=== PATIENT | female | born 1940 | race Hispanic/Latino ===

== ENCOUNTER → 2023-05-02 | Outpatient (CLI) | payer OTHER, MEDICARE ==
[~2023-05-02] MED LIST: IOHEXOL-350 75 ML VIAL IV ONE
== END | disposition home or self-care (01) ==
LOC: RAH 10:27
PROVIDERS: ATTEND Internal Medicine Gastroenterology
DX: R63.4 Abnormal weight loss (principal); R62.7 Adult failure to thrive
CPT/HCPCS: 74178; 71046; Q9967

== ENCOUNTER → 2023-05-17 | Outpatient (CLI) | payer OTHER, MEDICARE | END | disposition home or self-care (01) | LOC: EDBD → RAH 10:00 | PROVIDERS: ATTEND Internal Medicine Gastroenterology | DX: K44.9 Diaphragmatic hernia without obstruction or gangrene (principal); R63.4 Abnormal weight loss; R62.7 Adult failure to thrive; R68.81 Early satiety; K21.9 Gastro-esophageal reflux disease without esophagitis | CPT/HCPCS: 74240 ==

== ENCOUNTER 2023-05-25 21:06 | Emergency (ER) | payer OTHER, MEDICARE ==
[~2023-05-25] VITALS: Ht 157.5 cm; Wt 69.9 kg
[2023-05-25] MEDS ORDERED: ACETAMINOPHEN 500 MG TABLET PO ONE (23:00)
[2023-05-26 00:25] VITALS: BP 158/98; PULSE 87; RESP 20; O2SAT 95
== END 2023-05-26 00:43 | disposition home or self-care (01) ==
LOC: EDH 21:06
DX: M79.10 Myalgia, unspecified site (principal); M54.2 Cervicalgia; M54.9 Dorsalgia, unspecified; I10 Essential (primary) hypertension; M19.90 Unspecified osteoarthritis, unspecified site; V89.2XXA Person injured in unspecified motor-vehicle accident, traffic, initial encounter; Y93.I9 Activity, other involving external motion; Y92.488 Other paved roadways as the place of occurrence of the external cause; Y99.8 Other external cause status
CPT/HCPCS: 72125; 72128

== ENCOUNTER → 2023-07-26 | Outpatient (CLI) | payer OTHER, MEDICARE ==
[2023-07-26 16:29] LABS: CREATININE 1.6 mg/dL (0.5-1.5); POTASSIUM 3.1 mmol/L (3.5-5.1)
== END | disposition home or self-care (01) ==
LOC: LAB 11:56
PROVIDERS: ATTEND Internal Medicine Cardiovascular Disease
DX: E03.9 Hypothyroidism, unspecified (principal)
CPT/HCPCS: 36415; 80048

== ENCOUNTER → 2023-07-27 | Outpatient (CLI) | payer OTHER, MEDICARE | END | disposition home or self-care (01) | LOC: RAH 07:14 | PROVIDERS: ATTEND Internal Medicine Gastroenterology | DX: K30 Functional dyspepsia (principal); R63.4 Abnormal weight loss; R11.0 Nausea; R68.81 Early satiety | CPT/HCPCS: 78264; A9541 ==

== ENCOUNTER 2023-07-31 21:32 | Emergency (ER) | payer OTHER, MEDICARE ==
[~2023-07-31] VITALS: Ht 152.4 cm; Wt 62.1 kg
[2023-07-31 22:42] LABS: BASOPHILS # (AUTO) 0.06 K/uL (0.00-0.20); EOSINOPHILS # (AUTO) 1.15 K/uL (0.00-0.70); EOSINOPHILS % (AUTO) 19.8 % (0.0-8.0); IMMATURE GRANULOCYTE ABSOLUTE 0.01 K/uL (0-1); LYMPHOCYTES # (AUTO) 1.2 K/uL (1.0-4.8); MEAN CORPUSCULAR HEMOGLOBIN 29.2 pg (27.0-33.0); MEAN CORPUSCULAR HGB CONC 32.4 g/dL (32.0-36.0); MONOCYTES # (AUTO) 0.5 K/uL (0.1-1.0); MONOCYTES % (AUTO) 9.3 % (3.0-13.0); NEUTROPHILS # (AUTO) 2.8 K/uL (1.8-7.7); NEUTROPHILS % (AUTO) 48.7 % (40.0-77.0); PLATELET COUNT (AUTO) 237 K/uL (130-400); RED CELL DISTRIBUTION WIDTH 15.6 % (11.0-15.5); WHITE BLOOD COUNT (AUTO) 5.8 K/uL (4.8-10.8)
[2023-07-31 22:58] LABS: APPEARANCE,URINE CLEAR (CLEAR); BILIRUBIN,URINE NEGATIVE (NEGATIVE); COLOR,URINE YELLOW (YELLOW); GLUCOSE, URINE (UA) NEGATIVE (NEGATIVE); KETONES,URINE 5 mg/dL (NEGATIVE); LEUKOCYTE ESTERASE ,URINE 75 Leu/uL (NEGATIVE); NITRATE,URINE NEGATIVE (NEGATIVE); OCCULT BLOOD,URINE NEGATIVE (NEGATIVE); PROTEIN,URINE 20 mg/dL (NEGATIVE); UROBILINOGEN,URINE 3 mg/dL (0.2-1.0)
[2023-07-31 22:59] LABS: ADD UA MICROSCOPIC YES
[2023-07-31 23:01] LABS: INR 1.19 (0.85-1.15); PROTHROMBIN TIME 13.7 SEC (9.6-11.6)
[2023-07-31 23:02] LABS: PARTIAL THROMBOPLASTIN TIME 32.9 SEC (26.3-35.5)
[2023-07-31 23:03] LABS: MUCUS,URINE RARE LPF (None Seen); NON-SQUAMOUS EPITHELIAL CELL 2 /HPF (0-2); SQUAMOUS EPITHELIAL CELL,UR RARE /HPF (0-2)
[2023-07-31 23:31] LABS: ALBUMIN 3.1 g/dL (3.5-5.0); BILIRUBIN,TOTAL 0.7 mg/dL (0.2-1.0); CREATININE 1.2 mg/dL (0.5-1.5); DIGOXIN 1.61 ng/mL (0.50-2.00); THYROID STIMULATING HORMONE 5.65 uIU/mL (0.36-3.74); TOTAL PROTEIN, SERUM 6.5 g/dL (6.0-8.3)
[2023-07-31 23:36] LABS: POTASSIUM 2.8 mmol/L (3.5-5.1)
[2023-07-31 23:51] LABS: RAPID GROUP A STREP negative (NEGATIVE)
[2023-08-01 00:06] LABS: COVID19 (SARS ANTIGEN RAPID) PRESUMPTIVE NEGATIVE (NEGATIVE)
[2023-08-01 00:07] LABS: INFLUENZA TYPE A Negative For Type A (NEGATIVE); INFLUENZA TYPE B Negative For Type B (NEGATIVE)
[2023-08-01 00:45] LABS: WBC MORPHOLOGY CONSISTENT W/DIFF
[2023-08-01] MEDS: POTASSIUM BICARB/CIT AC 25 MEQ TABLET.EFF PO ONE (01:59)
[2023-08-01 03:52] VITALS: BP 160/99; PULSE 58; RESP 16; O2SAT 97
== END 2023-08-01 05:17 | disposition short-term general hospital (02) ==
LOC: EDH 21:32
DX: R41.82 Altered mental status, unspecified (principal); I63.9 Cerebral infarction, unspecified; I11.0 Hypertensive heart disease with heart failure; I50.9 Heart failure, unspecified; I48.91 Unspecified atrial fibrillation; Z90.49 Acquired absence of other specified parts of digestive tract; Z90.710 Acquired absence of both cervix and uterus; Z20.822 Contact with and (suspected) exposure to COVID-19
CPT/HCPCS: 36415; 70450; 80053; 80162; 81001; 82550; 83605; 83735; 84132; 84443; 84484; 85025; 85610; 85730; 87040; 87077; 87088; 87186; 87420; 87426; 87804; 87880; 93005

== ENCOUNTER 2024-09-02 06:10 | Observation (INO) | payer OTHER, MEDICARE ==
[2024-08-27 13:23] VITALS: BP 131/99; PULSE 80; RESP 18; TEMP 97.5
[2024-08-27 13:23] LABS: BASOPHILS # (AUTO) 0.05 K/uL (0.00-0.20); BASOPHILS % (AUTO) 0.5 % (0.0-5.0); EOSINOPHILS # (AUTO) 1.09 K/uL (0.00-0.70); EOSINOPHILS % (AUTO) 10.3 % (0.0-8.0); HEMATOCRIT 40.4 % (36-48); IMMATURE GRANULOCYTE ABSOLUTE 0.09 K/uL (0-1); LYMPHOCYTES % (AUTO) 9.9 % (21.0-51.0); MEAN CORPUSCULAR HEMOGLOBIN 28.7 pg (27.0-33.0); MEAN CORPUSCULAR HGB CONC 30.9 g/dL (32.0-36.0); MEAN CORPUSCULAR VOLUME 92.7 fL (79-99); MONOCYTES # (AUTO) 0.6 K/uL (0.1-1.0); MONOCYTES % (AUTO) 5.2 % (3.0-13.0); NEUTROPHILS # (AUTO) 7.7 K/uL (1.8-7.7); NEUTROPHILS % (AUTO) 73.2 % (40.0-77.0); PLATELET COUNT (AUTO) 296 K/uL (130-400); RED BLOOD CELL COUNT(AUTO) 4.36 MIL/uL (4.00-5.50); RED CELL DISTRIBUTION WIDTH 16.1 % (11.0-15.5); WHITE BLOOD COUNT (AUTO) 10.6 K/uL (4.8-10.8)
[2024-08-27 13:25] LABS: ADD UA MICROSCOPIC YES; APPEARANCE,URINE CLEAR (CLEAR); BILIRUBIN,URINE NEGATIVE (NEGATIVE); COLOR,URINE YELLOW (YELLOW); GLUCOSE, URINE (UA) NEGATIVE (NEGATIVE); KETONES,URINE NEGATIVE (NEGATIVE); LEUKOCYTE ESTERASE ,URINE NEGATIVE Leu/uL (NEGATIVE); NITRATE,URINE NEGATIVE (NEGATIVE); OCCULT BLOOD,URINE NEGATIVE (NEGATIVE); PROTEIN,URINE 10 mg/dL (NEGATIVE)
[2024-08-27 13:34] LABS: ALBUMIN 3.3 g/dL (3.5-5.0)
[2024-08-27 13:37] LABS: BACTERIA,URINE RARE /HPF (None Seen); MUCUS,URINE RARE LPF (None Seen); SQUAMOUS EPITHELIAL CELL,UR RARE /HPF (0-2)
[~2024-09-02] VITALS: Ht 157.5 cm; Wt 77.1 kg
[2024-09-02] VITALS (29 sets, daily range): BP systolic 99–162; BP diastolic 63–102; PULSE 65–110; RESP 14–20; TEMP 97.4–98.3; O2SAT 96–99
[~2024-09-02 06:10] MED LIST changes: +APIX2.5T PO; +ASPI-1197 PO; +ATOR40TA69 PO; +BIMA2.5D4 OP; +BRIM5DRO5 OP; +CETI10TA57 PO; +CHOL-34 PO; +CYAN-52 PO; +DIGO125T71 PO; +DOCU100T PO; +DONE5TAB33 PO; +DULO20CA18 PO; +FLUT16H NASAL; +FURO20TA4 PO; +GABA-529 PO; -IOHEXOL-350 75 ML VIAL IV ONE; +ISOS30TA92 PO; +LATA2.5D14 OP; +LEVO75CA5 PO; +LOSA50TA64 PO; +MELA1TAB52 PO; +METO-391 PO; +PANT40TA54 PO
[2024-09-02] MEDS: FAMOTIDINE 20MG VIAL IV ONE (06:55)
[2024-09-02] MEDS: acetaMINOPHEN 100 ML ONE (06:55)
[2024-09-02] MEDS ORDERED: ROPivacaine 0.5% 5MG/ML 30ML ONE (06:56)
[2024-09-02] MEDS ORDERED: ketaMINE 50MG/ML SYRINGE 50 MG/ML DISP.SYRIN ONE (06:56)
[2024-09-02] MEDS ORDERED: rocuRONium bROMide 10MG/1ML 5ML VL ONE (06:58)
[2024-09-02] MEDS ORDERED: proPOFol 10 MG/ML 20ML VIAL IV ONE (06:58)
[2024-09-02] MEDS ORDERED: LIDOCAINE PF 100MG/5ML (2%) SYRINGE 5ML ONE (06:58)
[2024-09-02] MEDS ORDERED: FENTanyl CITRate PF 50 MCG/1 ML 2ML VIAL ONE (06:58)
--- NOTE | 2024-09-02 07:08 | EKG ---
[facility] Test Date: 2024-09-02 Test Time: 06:47:53 Pat Name: SAIGE LARIOS Department: [facility] Room: 430 Gender: F Mobile Application Developer: [id number] : 1940 Requested By: BRIGIDA CARTER Order Number: [id number] Reading MD: Geoffrey Goodman Measurements Intervals [place] Rate: 108 P: 252 HI: 178 QRS: -20 QRSD: 89 T: 77 QT: 344 QTc: 461 Interpretive Statements Sinus or ectopic atrial tachycardia Probable LVH with secondary repol abnrm Compared to ECG 07/31/2023 22:40:58 Atrial fibrillation no longer present Myocardial infarct finding no longer present ST (T wave) deviation no longer present Electronically Signed On 09-04-2024 14:12:23 CDT by Geoffrey Goodman Please click the below link to view image of tracing.
[2024-09-02] MEDS: LACTATED RINGERS 1000ML 1,000 ML IV ONE (07:11)
[2024-09-02] MEDS: ceFAZolin SODIUM 2 GM VIAL ONE (07:12)
--- NOTE | 2024-09-02 07:28 | DS ---
Discharge Summary Hospital Course Summary: The patient was admitted to the hospital postoperatively on 09/02/2024 after undergoing left total knee arthroplasty. They did well with routine postoperative pain control. They worked well with physical therapy. They developed some acute blood loss anemia but remained asymptomatic. The hospital course was otherwise uncomplicated. They were subsequently able to be discharged on postoperative day [] once discharge arrangements were made with fdc facility. Assessment/Plan: ASSESSMENT: [ ] PLAN: [ ] Home Medications: Reported Medications Pantoprazole Sodium (Pantoprazole Sodium) 40 Mg Tablet.dr, 40 MG PO DAILY, TAB 08/27/24 Melatonin (Melatonin) 1 Mg Tablet, 1 MG PO PM, TAB 08/27/24 Fluticasone Propionate (Flonase Nasal [place]) 50 Mcg/Actuation [place], 50 MCG NASAL AD for CONGESTION, NASAL, AD., SPRAY 08/27/24 Cetirizine HCl (Cetirizine HCl) 10 Mg Tablet, 10 MG PO AM, TAB 08/27/24 Cholecalciferol (Vitamin D3) (Vitamin D3) 25 Mcg (1000 Unit) Tablet, 25 MCG PO AM, TAB 08/27/24 Cyanocobalamin (Vitamin B-12) (Vitamin B-12) 1,000 Mcg Tablet, 1000 MCG PO AM, TAB 08/27/24 Latanoprost (Latanoprost) 0.005 % Drops, 2.5 ML OP PM, DROP 08/27/24 Brimonidine Tartrate (Brimonidine Tartrate) 0.2 % Drops, 5 ML OP BID, DROP 08/27/24 Bimatoprost (Lumigan) 0.01 % Drops, 2.5 ML OP PM, DROP 08/27/24 Atorvastatin Calcium (LIPITOR) 40 Mg Tablet, 40 MG PO PM, TAB 08/27/24 Duloxetine HCl (Duloxetine HCl) 20 Mg Capsule.dr, 20 MG PO AM, CAP 08/27/24 Digoxin (Digoxin) 125 Mcg (0.125 Mg) Tablet, 125 MCG PO AM, TAB 08/27/24 Gabapentin (Gabapentin) 100 Mg Capsule, 100 MG PO AM, CAP 08/27/24 Docusate Sodium (Docusate Sodium) 100 Mg Tablet, 100 MG PO BID, TAB 08/27/24 Aspirin (Aspirin) 81 Mg Tab.chew, 81 MG PO QODAY, TAB.CHEW 08/27/24 Donepezil HCl (Donepezil HCl) 5 Mg Tablet, 5 MG PO AM, TAB 08/27/24 Isosorbide Mononitrate (Isosorbide Mononitrate ER) 30 Mg Tab.er.24h, 30 MG PO AM, TAB 08/27/24 Metoprolol Succinate (Metoprolol Succinate) 50 Mg Tab.er.24h, 50 MG PO AM, TAB 08/27/24 Losartan Potassium (Losartan Potassium) 50 Mg Tablet, 50 MG PO BID, TAB 08/27/24 Furosemide (Furosemide) 20 Mg Tablet, 20 MG PO BID, TAB 08/27/24 Apixaban (Eliquis) 2.5 Mg Tablet, 2.5 MG PO BID, TAB 08/27/24 Levothyroxine Sodium (Levothyroxine) 75 Mcg Capsule, 75 MCG PO AM, CAP 08/27/24 KMI BALTAZAR MD Sep 02, 2024 07:28
[2024-09-02] MEDS ORDERED: CALCIUM CARB 500MG PO PRN (07:30)
[2024-09-02] MEDS ORDERED: ondanSETRON 4MG INJ IVP PRN (07:30)
[2024-09-02] MEDS ORDERED: PoTASSium chloRIDE 20MEQ ER 20 MEQ ERTAB PO PRN (07:30)
[2024-09-02] MEDS ORDERED: PoTASSium chloRIDE 20MEQ/100ML 100 ML IV PRN (07:30)
[2024-09-02] MEDS ORDERED: dexaMETHasone SOD PHOSPHATE 10MG/ML 1ML VIAL ONE (07:30)
[2024-09-02] MEDS ORDERED: PoTASSium chl 10% ELIXIR 20MEQ 20 MEQ/15 ML UDCUP PO PRN (07:30)
[2024-09-02] MEDS ORDERED: ondanSETRON 4MG INJ ONE (07:30)
[2024-09-02] MEDS ORDERED: FERROUS FUMARATE 324 MG TABLET PO PRN (07:30)
[2024-09-02] MEDS ORDERED: phenylEPHRINE HCL 10 MG/ML 1ML VIAL IV ONE (07:37)
[2024-09-02] MEDS: ketOROlac 30MG VIAL (30MG/ML) ONE (08:40)
[2024-09-02] MEDS: ROPivacaine 0.5% 5MG/ML 30ML ONE (08:40)
[2024-09-02] MEDS: PANTOPrazole 40 MG TAB DR PO SCH (09:00)
[2024-09-02] MEDS ORDERED: GABApentin 100 MG CAPSULE PO SCH (09:00)
[2024-09-02] MEDS: furoSEMIDE 20 MG TABLET PO SCH (09:00)
[2024-09-02] MEDS: (Duloxetine HCl 20 MG) PO SCH (09:00)
[2024-09-02] MEDS: LoSARTan 50 MG TABLET PO SCH (09:00)
[2024-09-02] MEDS: (Cholecalciferol (Vitamin D3) (Vitamin D3) 25 MCG) PO SCH (09:00)
[2024-09-02] MEDS: ISOSORBIDE MONO 30MG SR TAB PO SCH (09:00)
[2024-09-02] MEDS: doNEPEZil HCL 5 MG TAB PO SCH (09:00)
[2024-09-02] MEDS: DIGOxin 125 MCG TABLET PO SCH (09:00)
[2024-09-02] MEDS: GABApentin 100 MG CAPSULE PO SCH (09:00)
[2024-09-02] MEDS: BRIMONIDINE TARTRATE 0.2% 5 ML BOTTLE OP SCH (09:00)
[2024-09-02] MEDS: doCUSate SODIUM 100 MG CAP PO SCH ×2 (09:00)
[2024-09-02] MEDS: polyETHYLene GLYCol 3350 17 GM POWD.PACK PO SCH (09:00)
[2024-09-02] MEDS: CYANOCOBALAMIN (VITAMIN B-12) 1,000 MCG TABLET PO SCH (09:00)
[2024-09-02] MEDS: ceTIRIzine HCL 5 MG TABLET PO SCH (09:00)
[2024-09-02] MEDS: metOPROLol sucCINATE 50 MG TAB.SR.24H PO SCH (09:00)
[2024-09-02] MEDS: SUGAMMADEX SODIUM 200 MG/2 ML VIAL IV ONE (09:11)
[2024-09-02] MEDS: hydrALAZine 20MG/ML VIAL ONE (10:12)
[2024-09-02] MEDS: ketOROlac 15MG/ML VIAL (15MG/ML) IV SCH ×2 (10:12→18:12)
[2024-09-02] MEDS: FENTanyl CITRate PF 50 MCG/1 ML 2ML VIAL ONE (10:13)
[2024-09-02] MEDS: ketOROlac 15MG/ML VIAL (15MG/ML) ONE (10:13)
--- NOTE | 2024-09-02 10:50 | HMCIMG ---
Exam Type: KNEE/PATELLA 1-2VWS LT Clinical Information: S/P LEFT TKA SURGERY Comparison: None Findings: Routine views of the knee are without evidence of fracture, dislocation, arthritic, or inflammatory change. There is status post knee replacement with adequate visualization and alignment of bony and hardware elements. No complications are seen. There are vascular calcifications. The joint space is well maintained and there is no effusion. IMPRESSION: Status post knee replacement.
--- NOTE | 2024-09-02 10:58 | NUR ---
PATIENT ARRIVED ON UNIT AT 1058. PATIENT IN NO APPARENT DISTRESS. SCDS APPLIED WELL JASON MONTGOMERY. MEDICATION HAS BEEN RECONCILED FROM DAUGHTER. RESPIRATORY CALLED FOR A INCENTIVE SPIROMETER. PATIENT DENIES PAIN AT THIS TIME. POST OP VITALS ARE: BP 130/69 HR 80 TEMP 97.6 O2 96 ON 3 LTRS OF O2
[2024-09-02] MEDS: 0.9%NACL 1000ML 1,000 ML IV SCH (11:37)
--- NOTE | 2024-09-02 11:43 | NUR ---
MET W PATIENT AT BEDSIDE FOR AFTER PLAN PATIENT IS S/P TOTAL KNEE. STATES LIVES WITH HER SON, IS INDEPENDENT IN ACTIVITIES OF DAILY LIVING, HAS A WALKER FORM HHER LAST SURGERY. STATES THERE ARE 10 [address]PS UP INTO HER APARTMENT. STATES DTR IS PROVIDER, DOES NOT KNOW HOW MANYOURS. STATES UNDERSTAND THE MD WANTS HER TO GO TO A FACILITY BUT DOES NOT WANT "OLD [facility]" .STATES WANTS [facility]. THIS CM CLARIFIED X 2 AD THEN ASK PATIENT IF SHE CUOLD ASK DAUGHTER TO CLAIFY. PT AGREED. STATES TO ASK [facility], CONTACT ON FACE SHEET. CONTACTED [facility] WHO ALSO SAID PATIENR ONLY WANTS TO GO TO [facility]. REFERRAL SENT AND TERRI NOTIFIED
[2024-09-02] MEDS: ceFAZolin SODIUM 2 GM VIAL IVP SCH (12:37)
[2024-09-02] MEDS: HYDROcodone/APAP 5/325 1 TAB TABLET PO PRN (14:25)
--- NOTE | 2024-09-02 15:05 | OP ---
Operative Note: DATE OF PROCEDURE: 09/02/24 PREOPERATIVE DIAGNOSIS: Left knee osteoarthritis. POSTOPERATIVE DIAGNOSIS: Left knee osteoarthritis. PROCEDURE PERFORMED: Left knee total knee arthroplasty. SURGEON: Kiara Oates MD BIN CLEANER: Drew Seaman. ANESTHESIA: General with adductor canal block. ANESTHESIA: JEWEL STAKER Ute Newell. ESTIMATED BLOOD LOSS: 50cc. COMPLICATIONS: None. DRAINS: None. SPECIMENS REMOVED: resected bone. Not sent to pathology. IMPLANTS: [employer]hew Journey II BCS size 4 Oxinium femur, size 3 tibial base plate, 32 x 7.5 mm patella, 9 mm polyethylene STATEMENT OF MEDICAL NECESSITY: The patient is a 83-year-old female who suffers from left knee osteoarthritis failing conservative management. After discussion of the risks, benefits, and alternatives with the patient, they voluntarily agreed to undergo the aforementioned procedure. DESCRIPTION OF PROCEDURE: Patient was properly identified in the preoperative holding area. Surgical site marking was verified and surgery consent reviewed. The patient was then taken to the operating room and placed in supine position on the OR table. After induction of general anesthesia, preoperative antibiotics were given, all bony prominences were well-padded, and a well padded tourniquet was applied but not inflated at this time. The left lower extremity was then prepped and draped in usual sterile fashion. Surgical time out was done verifying correct surgery, side, site, and location to be performed. We then began the procedure by exsanguinating the limb using an Esmarch and inflating the tourniquet to 350 mmHg. At this point, we made an anterior midline incision using a 10 blade, coming down sharply the level of the fascia. Skin flaps were elevated medially and laterally. We then obtained a clean 10 blade and performed a standard medial parapatellar arthrotomy. We excised the infrapatellar fat pad. We performed our soft tissue releases off of the tibia. We transected the ACL and removed the anterior portion of the medial & lateral meniscus. We then brought the knee into hyperflexion with the patella everted. We used our entry reamer to enter the femoral canal. We then placed our intramedullary cutting guide for our distal femoral cutting block. We then performed our distal femoral osteotomy ensuring appropriate rotation and removed the bony wafer. We then removed these pins and block and then used jig 2 to size the distal femur with the after mentioned size found. We then placed our 5-in-1 cutting block in 4 degrees of external rotation and took our 5 cuts ensuring to protect the patellar tendon and the collateral ligaments. We then removed the cutting block and our bony fragments using a curved osteotome. We then placed our PCL retractor subluxating the tibia anteriorly. Using an extra medullary tibial cutting guide, we hung the block for our proximal tibial cut taking 2 mm off the more diseased portion. Prior to pinning this block in place, we ensured appropriate varus/valgus alignment and posterior slope similar to the [place] slope of the patient's knee. We then performed our proximal tibial osteotomy and removed the bony wafer using Bovie electrocautery to release any remaining soft tissue attachments. We then used our tibial sizing paddle and checked once more for varus & valgus alignment and found this to be appropriate. At this point, we pinned our tibial paddle in place. We then removed the PCL retractor and subluxated the tibia posteriorly while we placed our femoral trial component. We then finished preparing the notch with the reamer and box chisel. The notch portion of the trial femoral component was then placed. A posterior stabilized polyethylene, size 9 trial was placed. The knee was then taken through range of motion and found to have stable full range of motion. We then placed a bump under the ankle and everted the patella to perform our freehand cut of the undersurface the patella. We then sized our patella and reamed to the lug holes for this. We placed our trial patellar component and begin to take the knee through range of motion. The patella had extreme lateral tracking, and we performed a lateral release. However the patella continued to have significant lateral tracking. We adjusted our tibial component rotation and placed a towel clip to approximate the soft tissues and had slightly better patellar tracking. We therefore elected to go with the 7.5 mm thickness patellar component. At this point we began removing our trial components and punched the tibial keel prior to removing our tibial trial component. Final components were opened and cement was mixed on the back table while we injected local cocktail in the posterior capsule. We then thoroughly irrigated out the bone and dried the bony surfaces. We cemented our tibial component in place ensuring to remove excess cement and placed our trial polyethylene. We then cemented our femoral component in place once again taking time to ensure excess cement was removed leg was brought into full extension to help squeeze the excess cement from around the femoral component. We then brought the knee back in a flexion to remove this portion of the cement at this point we placed the ankle in a bump thoroughly irrigated off the patellar component and cemented our patellar component in standard fashion again removing excess cement. While we waited for the cement to cure, we thoroughly irrigated out the wound with normal saline. Once our cement had cured, we took the knee through a range of motion and found full and stable range of motion. We then elected to use the size 9 polyethylene and removed our trial polyethylene. We impacted our final polyethylene component in place in standard fashion and took the knee through a range of motion check once more. This was satisfactory so we began to repair the arthrotomy using #1 Vicryl in interrupted [id number] fashion. Subcutaneous tissue was repaired using 2-0 Vicryl. Running subcuticular 3-0 Monocryl stitch with Dermabond placed over this for the skin. We then applied a foam barrier dressing and a pressure dressing consisting of 4 x 4's fluffs and an Dane wrap. The tourniquet was then deflated. Patient was awakened from anesthesia, and they were taken to the recovery room in stable condition. KIARA OATES MD Sep 02, 2024 15:05
[2024-09-02] MEDS: atorVAStatin 40 MG TABLET PO SCH (20:35)
[2024-09-02] MEDS: BIMATOPROST OP SCH (20:56)
[2024-09-02] MEDS: (Melatonin 1 MG) PO SCH (20:57)
[2024-09-03] VITALS (8 sets, daily range): BP systolic 102–144; BP diastolic 57–84; PULSE 108–112; RESP 18–20; TEMP 97.5–98.3; O2SAT 95
[2024-09-03 05:43] LABS: HEMATOCRIT 26.3 % (36-48); MEAN CORPUSCULAR HEMOGLOBIN 28.3 pg (27.0-33.0); MEAN CORPUSCULAR HGB CONC 30.4 g/dL (32.0-36.0); MEAN CORPUSCULAR VOLUME 92.9 fL (79-99); RED BLOOD CELL COUNT(AUTO) 2.83 MIL/uL (4.00-5.50); RED CELL DISTRIBUTION WIDTH 16.1 % (11.0-15.5); WHITE BLOOD COUNT (AUTO) 10.9 K/uL (4.8-10.8)
[2024-09-03 06:23] LABS: CREATININE 0.9 mg/dL (0.5-1.0); POTASSIUM 4.4 mmol/L (3.5-5.1)
[2024-09-03] MEDS: levoTHYROxine 75 MCG TABLET PO SCH (06:46)
--- NOTE | 2024-09-03 08:13 | PN ---
Ortho postop day one. This morning the patient is out of bed comfortable enjoying her breakfast. She is awake alert and oriented. Reporting adequate pain control. Vital signs reviewed. Afebrile. Laboratory results reviewed. Noted to have a drop in hemoglobin and hematocrit. Currently patient is asymptomatic and we will address per protocol as necessary. In forced incentive spirometry. I removed the Dane bandages. The dressing has a small area of blood. There is diffuse bruising to the extremity. The gastrocnemius a soft and nontender. Negative Homans. She has alternating extension and flexion while seated in the chair. She ambulated yesterday about 20 ft with therapy and is pending further therapy this morning. The anticipated discharge goal fdc facility. Operative findings discussed with the patient. She is voiding on her own. Assessment: Status post left total knee arthroplasty. Acute postoperative blood loss anemia. Plan: Continue with Dr. Oates's total knee arthroplasty protocol and discharge planning. Acute postoperative blood loss anemia addressed per protocol as necessary Vitals/Labs Vital Signs Date Time Temp Pulse Resp B/P (MAP) Pulse Ox O2 Delivery O2 Flow Rate FiO2 09/03/24 04:00 98.1 111 20 126/77 96 Room Air 09/02/24 21:40 0 21 Laboratory Tests 09/03/24 05:05 Medications Current Medications Cefazolin Sodium 2 gm STK-MED ONCE .ROUTE Last administered on 09/02/24at 07:35; Start 09/02/24 at 06:14; Stop 09/02/24 at 06:14; Status DC Lactated Ringer's 1,000 ml @ As Directed STK-MED ONCE IV Last administered on 09/02/24at 07:11; Start 09/02/24 at 06:14; Stop 09/02/24 at 06:14; Status DC Ketorolac Tromethamine 30 mg STK-MED ONCE .ROUTE Last administered on 09/02/24at 08:40; Start 09/02/24 at 06:46; Stop 09/02/24 at 06:51; Status DC Ropivacaine 150 mg STK-MED ONCE .ROUTE Last administered on 09/02/24at 08:40; Start 09/02/24 at 06:46; Stop 09/02/24 at 06:51; Status DC Acetaminophen 100 ml @ As Directed STK-MED ONCE .ROUTE; Start 09/02/24 at 06:55; Stop 09/02/24 at 06:55; Status DC Famotidine 20 mg STK-MED ONCE IV; Start 09/02/24 at 06:55; Stop 09/02/24 at 06:55; Status DC Ropivacaine 150 mg STK-MED ONCE .ROUTE; Start 09/02/24 at 06:56; Stop 09/02/24 at 06:56; Status DC Ketamine HCl 50 mg STK-MED ONCE .ROUTE; Start 09/02/24 at 06:56; Stop 09/02/24 at 06:56; Status DC Lidocaine HCl 100 mg STK-MED ONCE .ROUTE; Start 09/02/24 at 06:58; Stop 09/02/24 at 06:58; Status DC Propofol 200 mg STK-MED ONCE IV; Start 09/02/24 at 06:58; Stop 09/02/24 at 06:58; Status DC Rocuronium [place] 50 mg STK-MED ONCE .ROUTE; Start 09/02/24 at 06:58; Stop 09/02/24 at 06:58; Status DC Fentanyl Citrate 100 mcg STK-MED ONCE .ROUTE; Start 09/02/24 at 06:58; Stop 09/02/24 at 06:58; Status DC Sodium Chloride 1,000 ml @ 100 mls/hr Q10H IV Last administered on 09/03/24at 02:17; Start 09/02/24 at 07:30; Stop 09/03/24 at 07:29; Status DC Polyethylene Glycol 17 gm DAILY PO; Start 09/02/24 at 09:00; Stop 10/02/24 at 08:59 Bisacodyl 10 mg DAILY PRN RC; Start 09/05/24 at 07:30; Stop 10/05/24 at 07:29 Ketorolac Tromethamine 15 mg Q6H PRN IV; Start 09/03/24 at 10:00; Stop 09/08/24 at 09:59 Ferrous Fumarate 324 mg DAILY PRN PO; Start 09/02/24 at 07:30; Stop 10/02/24 at 07:29 Ondansetron HCl 4 mg Q6H PRN IVP; Start 09/02/24 at 07:30; Stop 10/02/24 at 07:29 Calcium Carbonate 500 mg Q12H PRN PO; Start 09/02/24 at 07:30; Stop 10/02/24 at 07:29 Cefazolin Sodium 2 gm Q8H IVP Last administered on 09/02/24at 20:34; Start 09/02/24 at 12:30; Stop 09/02/24 at 20:31; Status DC Cyclobenzaprine HCl 5 mg Q8H PRN PO; Start 09/02/24 at 07:30; Stop 10/02/24 at 07:29 Gabapentin 100 mg TID PO; Start 09/02/24 at 09:00; Stop 09/02/24 at 07:43; Status DC Aspirin 325 mg DAILY PO; Start 09/03/24 at 09:00; Stop 10/03/24 at 08:59 Ketorolac Tromethamine 15 mg Q8H IV Last administered on 09/02/24at 10:12; Start 09/02/24 at 07:30; Stop 09/02/24 at 11:59; Status DC Docusate Sodium 100 mg BID PO Last administered on 09/02/24at 20:34; Start 09/02/24 at 09:00; Stop 10/02/24 at 08:59 Potassium Chloride 100 ml @ 100 mls/hr AD PRN IV; Start 09/02/24 at 07:30; Stop 10/02/24 at 07:29 Potassium Chloride 20 meq AD PRN PO; Start 09/02/24 at 07:30; Stop 10/02/24 at 07:29 Potassium Chloride 20 meq AD PRN PO; Start 09/02/24 at 07:30; Stop 10/02/24 at 07:29 Tramadol HCl 50 mg Q6H PRN PO; Start 09/02/24 at 07:30; Stop 09/07/24 at 07:29 Acetaminophen/ Hydrocodone Bitart Q4H PRN PO Last administered on 09/03/24at 06:46; Start 09/02/24 at 07:30; Stop 09/07/24 at 07:29 Atorvastatin Calcium 40 mg PM PO Last administered on 09/02/24at 20:35; Start 09/02/24 at 21:00; Stop 10/02/24 at 20:59 Brimonidine Tartrate 1 DROP BID OP Last administered on 09/02/24at 20:55; Start 09/02/24 at 09:00; Stop 10/02/24 at 08:59 Vitamin B Complex 1,000 mcg AM PO; Start 09/02/24 at 09:00; Stop 10/02/24 at 08:59 Digoxin 125 mcg AM PO; Start 09/02/24 at 09:00; Stop 10/02/24 at 08:59 Donepezil HCl 5 mg AM PO; Start 09/02/24 at 09:00; Stop 10/02/24 at 08:59 Furosemide 20 mg BID PO Last administered on 09/02/24at 20:34; Start 09/02/24 at 09:00; Stop 10/02/24 at 08:59 Gabapentin 100 mg AM PO; Start 09/02/24 at 09:00; Stop 10/02/24 at 08:59 Isosorbide Mononitrate 30 mg AM PO; Start 09/02/24 at 09:00; Stop 10/02/24 at 08:59 Losartan Potassium 50 mg BID PO Last administered on 09/02/24at 20:41; Start 09/02/24 at 09:00; Stop 10/02/24 at 08:59 Metoprolol Succinate 50 mg AM PO; Start 09/02/24 at 09:00; Stop 10/02/24 at 08:59 Pantoprazole Sodium 40 mg DAILY PO; Start 09/02/24 at 09:00; Stop 10/02/24 at 08:59 Home Med (Bimatoprost (Lumigan) 2.5 ML) PM OP Last administered on 09/02/24at 20:56; Start 09/02/24 at 21:00; Stop 10/02/24 at 20:59 Cetirizine HCl 10 mg DAILY PO; Start 09/02/24 at 09:00; Stop 10/02/24 at 08:59 Home Med (Cholecalciferol (Vitamin D3) (Vitamin D3)... AM PO; Start 09/02/24 at 09:00; Stop 10/02/24 at 08:59 Docusate Sodium 100 mg BID PO; Start 09/02/24 at 09:00; Stop 10/02/24 at 08:59 Home Med (Duloxetine HCl 20 MG) AM PO; Start 09/02/24 at 09:00; Stop 10/02/24 at 08:59 Levothyroxine Sodium 75 mcg SYN PO Last administered on 09/03/24at 06:46; Start 09/03/24 at 06:30; Stop 10/03/24 at 06:29 Home Med (Melatonin 1 MG) PM PO; Start 09/02/24 at 21:00; Stop 10/02/24 at 20:59 Ondansetron HCl 4 mg STK-MED ONCE .ROUTE; Start 09/02/24 at 07:30; Stop 09/02/24 at 07:33; Status DC Dexamethasone Sodium Phosphate 10 mg STK-MED ONCE .ROUTE; Start 09/02/24 at 07:30; Stop 09/02/24 at 07:33; Status DC Phenylephrine HCl 10 mg STK-MED ONCE IV; Start 09/02/24 at 07:37; Stop 09/02/24 at 07:37; Status DC Fentanyl Citrate 100 mcg STK-MED ONCE .ROUTE Last administered on 09/02/24at 10:13; Start 09/02/24 at 10:06; Stop 09/02/24 at 10:09; Status DC Hydralazine HCl 20 mg STK-MED ONCE .ROUTE Last administered on 09/02/24at 10:12; Start 09/02/24 at 10:06; Stop 09/02/24 at 10:09; Status DC Ketorolac Tromethamine 15 mg STK-MED ONCE .ROUTE; Start 09/02/24 at 10:09; Stop 09/02/24 at 10:10; Status DC Ketorolac Tromethamine 15 mg Q8H IV Last administered on 09/03/24at 02:15; Start 09/02/24 at 18:00; Stop 09/03/24 at 02:01; Status DC JENNIFER POND NP Sep 03, 2024 08:13
[2024-09-03] MEDS: ASPIRIN 325MG EC TAB PO SCH (09:13)
[2024-09-03] MEDS: ketOROlac 15MG/ML VIAL (15MG/ML) IV PRN (09:20)
--- NOTE | 2024-09-03 15:20 | NUR ---
ORTHO COORDINATOR: TEACHING REGARDING DVT AND PNEUMONIA PREVENTION, PAIN EXPECTATIONS AND PAIN MANAGEMENT. PATIENT BRITISH SPEAKING ONLY. UTILIZED HOSPITAL SOCIAL WORKER CLINICAL. PATIENT IN BED. B SCD SLEEVES PLACED AND FUNCTIONING. INCENTIVE SPIROMETER ON BEDSIDE TABLE. PATIENT RETURN DEMONSTRATED FOOT FLEXION AND EXTENSION EXERCISE AND PROPER USE OF INCENTIVE SPIROMETER. PATIENT UNSURE OF HOW OFTEN TO USE, INSTRUCTED PATIENT TO USE INCENTIVE SPIROMETER EVERY HOUR, 10 BREATHS. PATIENT VERBALIZED UNDERSTANDING. PAIN SCALE REVIEWED. PAIN CONTROLLED, ONLY HURTS WITH PHYSICAL THERAPY, RE-ASSURED PATIENT WAS NORMAL. ENCOURAGE PATIENT TO CONTINUE PREMEDICATING PRIOR TO PHYSICAL THERAPY. PATIENT VERBALIZED UNDERSTANDING. PATIENT REPORTS DESIRES REHAB. PATIENT REPORTS [facility] VISITED TODAY. ASKED IF THIS WAS HER REHAB OF CHOICE, SHE SAID SHE DID NOT HAVE A PREFERENCE. [phone] CALL PLACED TO GRANITE INSTALLER.
--- NOTE | 2024-09-03 15:44 | NUR ---
SPOKE TO FAMILY ON THE PHONE - SAMMIE RESENDEZ DTRene RE ITERATED THAT PATIENT AND DAUGHTER SPOKE EXTENSIVELY PRIOR TO SURGERY ABOUT PLACEMENT POST OP AND STATED SHE DID NOT WANT TO GO BACK TO [facility] AND DID NOT WANT TO GO TO [facility]. WILL CLARIFY WITH JOCY GALAN CORDINATOR. AND SANDOR CHARGE
--- NOTE | 2024-09-03 16:05 | NUR ---
CHANGE OF AFTERCARE VENUE JOCY SAUCEDA AT BEDSIDE W THIS CM. EXPLAINED BENEFIT OF GOING TO MD'S PREFERRED SNF WITH AFTERCARE DESIGMED BY DR. GUTIERREZ. PATIENT HAD BAD EXPERIENCE AT [facility] ON LAST SURGERY. DECLINED THAT. PATIENT STATES THE PEOPLE ONLY GO TO [facility] TO . ADDRESSED FEARS AND CONCERNS. PATIENT EXPRESSED REASSURANCE EXPLAINED THE THERAPY PROGRAM, THE ESTIMATED LOS. PATIENT STATES WOULD GO TO [facility] IF THAT WAS THE SURGEON PREFERENCE NEW VERBAL CONSENT FROM [facility] / DTR VIA PHONE. EXPLAINED THAT REFERRAL WOULD START OVER
[2024-09-04] VITALS (7 sets, daily range): BP systolic 93–146; BP diastolic 49–79; PULSE 108–116; RESP 17–19; TEMP 97.7–99.7; O2SAT 93–96
[2024-09-04] MEDS: CYCLOBENZAPRINE HCL 10 MG TABLET PO PRN (08:18)
--- NOTE | 2024-09-04 17:00 | NUR ---
ORTHO COORDINATOR: REINFORCED TEACHING. PATIENT IN BED, GRAND DAUGHTER AT BEDSIDE. DRESSING REMOVED FROM LEFT KNEE, SURGICAL SITE CLEAN AND INTACT. BRUISING PRESENT. BLISTERS PRESENT. PATIENT INSTRUCTED NOT TO POP BLISTERS, WE WOULD ADDRESS IF THEY OPENED. PATIENT AND GRAND-DAUGHTER VERBALIZED UNDERSTANDING. PATIENT REPORTS PHYSICAL THERAPY X 2, CURRENT PAIN 01/26. PATIENT DID NOT CALL FOR PAIN MEDICATION. REVIEWED THAT PATIENT HAD TO REQUEST MEDICATION. PATIENT AND GRAND-DAUGHTER VERBALIZED UNDERSTANDING. 1710 REPORT TO PRIMARY NURSE REGARDING PAIN LEVEL. PRIMARY NURSE ACKNOWLEDGED COMMUNICATION.
--- NOTE | 2024-09-04 21:25 | PN ---
Ortho postop day two. Seen at 1700 Reports adequate pain control. States PT causes pain to increase but remains t olerable. Denies n,v,cp,sob. Vital signs reviewed. Afebrile. Patient is reclined in bed. Inforced incentive spirometry. LLE: surgical dressing removed. diffuse ecchymosis. small superficial laceration type wound medially. dermabond applied over lac and proximal incision where leaking was occurring. blistering distally adjacent to and involving incision region. diffuse edema at knee and distally. gets within 5* of full extension but she is tight She ambulated about 55 ft with therapy x2 today The anticipated discharge goal [facility] facility. Assessment: POD 2 Status post left total knee arthroplasty. Acute postoperative blood loss anemia. Plan: Continue with my total knee arthroplasty protocol and discharge planning. Acute postoperative blood loss anemia addressed per protocol as necessary Vitals/Labs Vital Signs Date Time Temp Pulse Resp B/P (MAP) Pulse Ox O2 Delivery O2 Flow Rate FiO2 09/04/24 16:00 97.9 112 18 108/49 95 Room Air 09/04/24 08:00 0 21 Medications Current Medications Cefazolin Sodium 2 gm STK-MED ONCE .ROUTE Last administered on 09/02/24at 07:35; Start 09/02/24 at 06:14; Stop 09/02/24 at 06:14; Status DC Lactated Ringer's 1,000 ml @ As Directed STK-MED ONCE IV Last administered on 09/02/24at 07:11; Start 09/02/24 at 06:14; Stop 09/02/24 at 06:14; Status DC Ketorolac Tromethamine 30 mg STK-MED ONCE .ROUTE Last administered on 09/02/24at 08:40; Start 09/02/24 at 06:46; Stop 09/02/24 at 06:51; Status DC Ropivacaine 150 mg STK-MED ONCE .ROUTE Last administered on 09/02/24at 08:40; Start 09/02/24 at 06:46; Stop 09/02/24 at 06:51; Status DC Acetaminophen 100 ml @ As Directed STK-MED ONCE .ROUTE; Start 09/02/24 at 06:55; Stop 09/02/24 at 06:55; Status DC Famotidine 20 mg STK-MED ONCE IV; Start 09/02/24 at 06:55; Stop 09/02/24 at 06:55; Status DC Ropivacaine 150 mg STK-MED ONCE .ROUTE; Start 09/02/24 at 06:56; Stop 09/02/24 at 06:56; Status DC Ketamine HCl 50 mg STK-MED ONCE .ROUTE; Start 09/02/24 at 06:56; Stop 09/02/24 at 06:56; Status DC Lidocaine HCl 100 mg STK-MED ONCE .ROUTE; Start 09/02/24 at 06:58; Stop 09/02/24 at 06:58; Status DC Propofol 200 mg STK-MED ONCE IV; Start 09/02/24 at 06:58; Stop 09/02/24 at 06:58; Status DC Rocuronium [place] 50 mg STK-MED ONCE .ROUTE; Start 09/02/24 at 06:58; Stop 09/02/24 at 06:58; Status DC Fentanyl Citrate 100 mcg STK-MED ONCE .ROUTE; Start 09/02/24 at 06:58; Stop 09/02/24 at 06:58; Status DC Sodium Chloride 1,000 ml @ 100 mls/hr Q10H IV Last administered on 09/03/24at 02:17; Start 09/02/24 at 07:30; Stop 09/03/24 at 07:29; Status DC Polyethylene Glycol 17 gm DAILY PO Last administered on 09/04/24at 08:19; Start 09/02/24 at 09:00; Stop 10/02/24 at 08:59 Bisacodyl 10 mg DAILY PRN RC; Start 09/05/24 at 07:30; Stop 10/05/24 at 07:29 Ketorolac Tromethamine 15 mg Q6H PRN IV Last administered on 09/03/24at 23:28; Start 09/03/24 at 10:00; Stop 09/08/24 at 09:59 Ferrous Fumarate 324 mg DAILY PRN PO; Start 09/02/24 at 07:30; Stop 10/02/24 at 07:29 Ondansetron HCl 4 mg Q6H PRN IVP; Start 09/02/24 at 07:30; Stop 10/02/24 at 07:29 Calcium Carbonate 500 mg Q12H PRN PO; Start 09/02/24 at 07:30; Stop 10/02/24 at 07:29 Cefazolin Sodium 2 gm Q8H IVP Last administered on 09/02/24at 20:34; Start 09/02/24 at 12:30; Stop 09/02/24 at 20:31; Status DC Cyclobenzaprine HCl 5 mg Q8H PRN PO Last administered on 09/04/24at 20:27; Start 09/02/24 at 07:30; Stop 10/02/24 at 07:29 Gabapentin 100 mg TID PO; Start 09/02/24 at 09:00; Stop 09/02/24 at 07:43; Status DC Aspirin 325 mg DAILY PO Last administered on 09/04/24at 08:15; Start 09/03/24 at 09:00; Stop 10/03/24 at 08:59 Ketorolac Tromethamine 15 mg Q8H IV Last administered on 09/02/24at 10:12; Start 09/02/24 at 07:30; Stop 09/02/24 at 11:59; Status DC Docusate Sodium 100 mg BID PO Last administered on 09/04/24at 20:28; Start 09/02/24 at 09:00; Stop 10/02/24 at 08:59 Potassium Chloride 100 ml @ 100 mls/hr AD PRN IV; Start 09/02/24 at 07:30; Stop 10/02/24 at 07:29 Potassium Chloride 20 meq AD PRN PO; Start 09/02/24 at 07:30; Stop 10/02/24 at 07:29 Potassium Chloride 20 meq AD PRN PO; Start 09/02/24 at 07:30; Stop 10/02/24 at 07:29 Tramadol HCl 50 mg Q6H PRN PO; Start 09/02/24 at 07:30; Stop 09/07/24 at 07:29 Acetaminophen/ Hydrocodone Bitart Q4H PRN PO Last administered on 09/04/24at 20:30; Start 09/02/24 at 07:30; Stop 09/07/24 at 07:29 Atorvastatin Calcium 40 mg PM PO Last administered on 09/04/24at 20:27; Start 09/02/24 at 21:00; Stop 10/02/24 at 20:59 Brimonidine Tartrate 1 DROP BID OP Last administered on 09/04/24at 20:36; Start 09/02/24 at 09:00; Stop 10/02/24 at 08:59 Vitamin B Complex 1,000 mcg AM PO Last administered on 09/04/24 08:14; Start 09/02/24 at 09:00; Stop 10/02/24 at 08:59 Digoxin 125 mcg AM PO Last administered on 09/04/24 08:15; Start 09/02/24 at 09:00; Stop 10/02/24 at 08:59 Donepezil HCl 5 mg AM PO Last administered on 09/04/24at 08:14; Start 09/02/24 at 09:00; Stop 10/02/24 at 08:59 Furosemide 20 mg BID PO Last administered on 09/04/24 20:27; Start 09/02/24 at 09:00; Stop 10/02/24 at 08:59 Gabapentin 100 mg AM PO Last administered on 09/04/24 08:16; Start 09/02/24 at 09:00; Stop 10/02/24 at 08:59 Isosorbide Mononitrate 30 mg AM PO Last administered on 09/04/24at 08:15; Start 09/02/24 at 09:00; Stop 10/02/24 at 08:59 Losartan Potassium 50 mg BID PO Last administered on 09/04/24 20:27; Start 09/02/24 at 09:00; Stop 10/02/24 at 08:59 Metoprolol Succinate 50 mg AM PO Last administered on 09/04/24 08:15; Start 09/02/24 at 09:00; Stop 10/02/24 at 08:59 Pantoprazole Sodium 40 mg DAILY PO Last administered on 09/04/24at 08:16; Start 09/02/24 at 09:00; Stop 10/02/24 at 08:59 Home Med (Bimatoprost (Lumigan) 2.5 ML) PM OP Last administered on 09/02/24at 20:56; Start 09/02/24 at 21:00; Stop 10/02/24 at 20:59 Cetirizine HCl 10 mg DAILY PO Last administered on 09/04/24 08:15; Start 09/02/24 at 09:00; Stop 10/02/24 at 08:59 Home Med (Cholecalciferol (Vitamin D3) (Vitamin D3)... AM PO; Start 09/02/24 at 09:00; Stop 10/02/24 at 08:59 Docusate Sodium 100 mg BID PO; Start 09/02/24 at 09:00; Stop 10/02/24 at 08:59 Home Med (Duloxetine HCl 20 MG) AM PO Last administered on 09/03/24at 09:00; Start 09/02/24 at 09:00; Stop 10/02/24 at 08:59 Levothyroxine Sodium 75 mcg SYN PO Last administered on 09/04/24at 05:15; Start 09/03/24 at 06:30; Stop 10/03/24 at 06:29 Home Med (Melatonin 1 MG) PM PO; Start 09/02/24 at 21:00; Stop 10/02/24 at 20:59 Ondansetron HCl 4 mg STK-MED ONCE .ROUTE; Start 09/02/24 at 07:30; Stop 09/02/24 at 07:33; Status DC Dexamethasone Sodium Phosphate 10 mg STK-MED ONCE .ROUTE; Start 09/02/24 at 07:30; Stop 09/02/24 at 07:33; Status DC Phenylephrine HCl 10 mg STK-MED ONCE IV; Start 09/02/24 at 07:37; Stop 09/02/24 at 07:37; Status DC Fentanyl Citrate 100 mcg STK-MED ONCE .ROUTE Last administered on 09/02/24at 10:13; Start 09/02/24 at 10:06; Stop 09/02/24 at 10:09; Status DC Hydralazine HCl 20 mg STK-MED ONCE .ROUTE Last administered on 09/02/24at 10:12; Start 09/02/24 at 10:06; Stop 09/02/24 at 10:09; Status DC Ketorolac Tromethamine 15 mg STK-MED ONCE .ROUTE; Start 09/02/24 at 10:09; Stop 09/02/24 at 10:10; Status DC Ketorolac Tromethamine 15 mg Q8H IV Last administered on 09/03/24at 02:15; Start 09/02/24 at 18:00; Stop 09/03/24 at 02:01; Status DC KIM BALTAZAR MD Sep 04, 2024 21:25
[2024-09-05 04:00] VITALS: BP 123/71; PULSE 110; RESP 19; TEMP 98
[2024-09-05] MEDS ORDERED: BisaCODYL 10 MG SUPP.RECT RC PRN (07:30)
[2024-09-05 08:00] VITALS: O2SAT 93
[2024-09-05 08:49] VITALS: BP 113/57; PULSE 116; RESP 18; TEMP 98.3
[2024-09-05 09:39] VITALS: PULSE 100
[2024-09-05] MEDS: traMADol HCL 50 MG TABLET PO PRN (10:10)
[2024-09-05 11:14] VITALS: BP 14/64; PULSE 111; RESP 18; TEMP 98.2
--- NOTE | 2024-09-05 13:45 | NUR ---
ADVISED TRENT CHARGE OF PATIENT'S ACCEPTANCE TO [facility] DURING [facility]
[2024-09-05 14:47] VITALS: BP 93/47; PULSE 112; RESP 18; TEMP 98.1
[2024-09-05] MEDS ORDERED: HYDR-4060 PO (15:19)
[2024-09-05] MEDS ORDERED: CYCL-309 PO (15:19)
--- NOTE | 2024-09-05 16:15 | NUR ---
ORTHO COORDINATOR: REINFORCED TEACHING. HOSPITAL OPHTHALMIC MEDICAL TECHNICIAN USED. PATIENT IN BED, DAUGHTER AT BEDSIDE. REVIEWED IMPORTANCE OF CONTINUING INCENTIVE SPIROMETER AND FOOT FLEXION/EXTENSION AFTER DISCHARGE. ENCOURAGED PATIENT TO CONTINUE PREMEDICATING PRIOR TO PHYSICAL THERAPY WHILE IN REHAB. PATIENT HAS NOT HAD BOWEL MOVEMENT, REPORTS PASSING GAS. SURGICAL SITE, UNCHANGED FROM PREVIOUS DAY. 1630 REPORT TO PRIMARY NURSE REGARDING NO BOWEL MOVEMENT. PRIMARY NURSE VERBALIZED UNDERSTANDING.
== END 2024-09-05 18:50 ==
LOC: DAH 06:10 → DAHIP 06:11 → 4AH 10:58
PROVIDERS: ADMIT Student in an Organized Health Care Education/Training Program; ATTEND Student in an Organized Health Care Education/Training Program
DX: M17.12 Unilateral primary osteoarthritis, left knee (principal); G89.18 Other acute postprocedural pain; D62 Acute posthemorrhagic anemia; I10 Essential (primary) hypertension; E78.5 Hyperlipidemia, unspecified; I48.91 Unspecified atrial fibrillation; K21.9 Gastro-esophageal reflux disease without esophagitis; Z98.890 Other specified postprocedural states; Z79.899 Other long term (current) drug therapy
CPT/HCPCS: 82040; 85025; 87086; 84134; 86140; 81001; 36415 ×2; 87641; 27447; 64447; 96365; 96366; 96375; 73560; 97161; 97116 ×7; 97530 ×8; 93005; 96376 ×2; 80048; 85027; G0378 ×76; A4223 ×2; A4663; J7120 ×2; J3490 ×3; J3010 ×2; J1100; J2003; J0360; J2704; J2405; J1885 ×7; J2795 ×2; J2371; J0690 ×3; C1713 ×2; C1776 ×2; A4649 ×2; A4930 ×3; A6255; A5120; A4215; A4222; A4221

== ENCOUNTER → 2024-10-14 | Outpatient (CLI) | payer OTHER, MEDICARE ==
[~2024-10-14] MED LIST changes: +CYCL-309 PO; +HYDR-4060 PO; -LEVO75CA5 PO; +LEVO75CA6 PO; +LIDOCAINE HCL 4% LTA SOL 4 ML VIAL TP ONE
== END | disposition home or self-care (01) ==
LOC: WHH 09:07 → EDBD 09:07
PROVIDERS: ATTEND Family Medicine
DX: T81.31XA Disruption of external operation (surgical) wound, not elsewhere classified, initial encounter (principal); S81.002A Unspecified open wound, left knee, initial encounter; I10 Essential (primary) hypertension; E78.5 Hyperlipidemia, unspecified; E03.9 Hypothyroidism, unspecified; K21.9 Gastro-esophageal reflux disease without esophagitis; I48.91 Unspecified atrial fibrillation; E66.9 Obesity, unspecified; F32.A Depression, unspecified; M17.12 Unilateral primary osteoarthritis, left knee; Z86.73 Personal history of transient ischemic attack (TIA), and cerebral infarction without residual deficits; Z90.49 Acquired absence of other specified parts of digestive tract; X58.XXXA Exposure to other specified factors, initial encounter; Y83.8 Other surgical procedures as the cause of abnormal reaction of the patient, or of later complication, without mention of misadventure at the time of the procedure; Y92.238 Other place in hospital as the place of occurrence of the external cause; Y93.89 Activity, other specified; Y92.89 Other specified places as the place of occurrence of the external cause; Y99.8 Other external cause status
CPT/HCPCS: G0463